=== PATIENT | female | born 1955 | race Caucasian/White ===

== ENCOUNTER → 2017-05-20 | Day surgery (SDC) | payer BC ==
[2017-05-18 08:54] LABS: BASOPHILS # (AUTO) 0.1 (0.0-0.1); BASOPHILS % 0.8 % (0.0-1.0); EOSINOPHILS # (AUTO) 0.1 (0.0-0.4); EOSINOPHILS % 1.5 % (0.0-6.0); HEMATOCRIT 49.7 % (34.2-44.1); HEMOGLOBIN 16.1 g/dL (12.0-16.0); LYMPHOCYTES # (AUTO) 2.5 (1.0-3.2); LYMPHOCYTES % 31.6 % (18.0-39.1); MEAN CORPUSCULAR HEMOGLOBIN 30.8 pg (28-32); MEAN CORPUSCULAR HGB CONC 32.4 g/dL (31-35); MONOCYTES # (AUTO) 0.8 (0.2-0.8); MONOCYTES % 9.6 % (4.4-11.3); NEUTROPHILS # (AUTO) 4.5 (2.1-6.9); PLATELET COUNT 178 x10e3/uL (140-360); RED BLOOD COUNT 5.23 x10e6/uL (3.6-5.1); RED CELL DISTRIBUTION WIDTH 12.6 % (11.7-14.4)
[2017-05-18 09:15] LABS: INR 0.87; PROTHROMBIN TIME 12.3 seconds (11.9-14.5)
[2017-05-18 09:16] LABS: PARTIAL THROMBOPLASTIN TIME 30.9 seconds (23.8-35.5)
[2017-05-18 09:23] LABS: ANION GAP 12.9 mmol/L (8-16); BLOOD UREA NITROGEN 15 mg/dL (7-26); BUN/CREATININE RATIO 19 (6-25); CALCIUM 9.1 mg/dL (8.4-10.2); CARBON DIOXIDE 30 mmol/L (22-29); CHLORIDE 102 mmol/L (98-107); CREATININE, SERUM 0.77 mg/dL (0.57-1.11); EST GLOMERULAR FILTRATION RATE > 60 ML/MIN (60-); GLUCOSE 122 mg/dL (74-118); POTASSIUM 3.9 mmol/L (3.5-5.1); SODIUM 141 mmol/L (136-145)
[~2017-05-20] MED LIST: BOTULINUM TOXIN TYPE A 100 UNIT VIAL IM ONE; BREO INH; CEFOXITIN 1GM/ DEXTROSE 50ML 50 ML IV ONE; DEXAMETHASONE SOD PHOS INJ 4 MG/ML VIAL ONE; FENTANYL CITRATE/PF 100MCG/2 ML INJ ONE; LEVOTHYROXINE50 MCG PO; LIDOCAINE HCL 2% LOCAL INJ 5 ML SDV VIAL INJ ONE; MIDAZOLAM HCL 2 MG/2 ML VIAL ONE; MONTELUKAST SOD10 MG PO; MULTI-VITAMIN1 EACH PO; NICODERM CQ1 EAC1 TD; ONDANSETRON HCL INJ 2 MG/ML VIAL ONE; OXYBUTYNIN CHLOR5 MG PO; PROPOFOL IV EMULSION 10 MG/ML 20 ML VIAL ONE; SEVOFLURANE INHAL SOLN 250 ML PEN BTL ONE; VENTOLIN HFA18 GM INH
--- NOTE | 2017-05-20 15:59 | Operative Report ---
DATE OF PROCEDURE: May 20, 2017 PREOPERATIVE DIAGNOSIS: Urinary urgency incontinence. POSTOPERATIVE DIAGNOSIS: Urinary urgency incontinence. OPERATION PERFORMED: Cystoscopy with injection of intravesical Botox 200 units. ANESTHESIA: General. INDICATIONS: This patient is a 61-year-old white female with a long history of urinary urgency incontinence. She has failed on anticholinergic agents and Myrbetriq. The patient did have a fairly good reaction in response to Botox 100 units; and, so, the plan now is to increase her dosage to Botox 200 units. For further details, please refer to the history and physical. The procedure was done in the following fashion. DESCRIPTION OF PROCEDURE: The patient was taken to the operating room and placed under general anesthesia, dressed and draped with Hibiclens in lithotomy position in the usual fashion. The 22-Wallisian Olympus cystoscope was inserted and the bladder emptied. I then did an evaluation of the bladder with the cystoscope, which revealed some mild cystitis cystica and some mild to moderate bladder trabeculation. No bladder tumors were identified. Prior to proceeding with a cystoscopy, I had diluted 200 units of Botox in 20 mL of bacteriostatic sterile saline. Using a Coloplast needle, I then made 20 injections in the patient's bladder, and these were spread out so as to avoid injection of the trigone area. Once the 20 injections were completed, the Coloplast needle and the cystoscope were withdrawn. Each injection was a 1 mL injection. The patient tolerated procedure well and left the operating room in good condition. She will have a return appointment to see me again in 2 weeks. She is being sent home on Macrobid 100 mg p.o. twice daily, number 20. She will resume her preoperative medications. Job#: [id number] EV
== END | disposition home or self-care (01) ==
LOC: OR 09:55
PROVIDERS: ATTEND Urology
DX: N39.41 Urge incontinence (principal); N30.80 Other cystitis without hematuria; N32.89 Other specified disorders of bladder; J44.9 Chronic obstructive pulmonary disease, unspecified; E66.9 Obesity, unspecified; I89.0 Lymphedema, not elsewhere classified; M81.0 Age-related osteoporosis without current pathological fracture; E03.2 Hypothyroidism due to medicaments and other exogenous substances; I83.893 Varicose veins of bilateral lower extremities with other complications; F41.9 Anxiety disorder, unspecified; F17.200 Nicotine dependence, unspecified, uncomplicated; Z01.810 Encounter for preprocedural cardiovascular examination; Z01.812 Encounter for preprocedural laboratory examination; Z68.39 Body mass index [BMI] 39.0-39.9, adult; Z84.1 Family history of disorders of kidney and ureter
CPT/HCPCS: 36415; 52287; 80048; 85025; 85610; 85730; 93005; J0587; J1100; J2001; J2250; J2405

== ENCOUNTER → 2017-11-18 | Day surgery (SDC) | payer BC ==
[2017-11-15 08:32] LABS: BASOPHILS # (AUTO) 0.1 (0.0-0.1); BASOPHILS % 0.6 % (0.0-1.0); EOSINOPHILS # (AUTO) 0.1 (0.0-0.4); EOSINOPHILS % 1.6 % (0.0-6.0); HEMOGLOBIN 17.5 g/dL (12.0-16.0); MEAN CORPUSCULAR HEMOGLOBIN 31.1 pg (28-32); MEAN CORPUSCULAR HGB CONC 32.4 g/dL (31-35); MEAN CORPUSCULAR VOLUME 95.9 fL (81-99); MONOCYTES # (AUTO) 0.8 (0.2-0.8); MONOCYTES % 10.1 % (4.4-11.3); NEUTROPHILS % 49.5 % (38.7-80.0); PLATELET COUNT 169 x10e3/uL (140-360); RED BLOOD COUNT 5.63 x10e6/uL (3.6-5.1); RED CELL DISTRIBUTION WIDTH 12.9 % (11.7-14.4)
[2017-11-15 08:42] LABS: INR 1.02; PROTHROMBIN TIME 12.6 seconds (11.9-14.5)
[2017-11-15 08:43] LABS: PARTIAL THROMBOPLASTIN TIME 30.4 seconds (23.8-35.5)
[2017-11-15 08:51] LABS: ALANINE AMINOTRANSFERASE 30 IU/L (0-55); ALBUMIN 4.2 g/dL (3.5-5.0); ALBUMIN/GLOBULIN RATIO 1.2 (0.8-2.0); ALKALINE PHOSPHATASE 94 IU/L (40-150); ANION GAP 16.3 mmol/L (8-16); BLOOD UREA NITROGEN 16 mg/dL (7-26); BUN/CREATININE RATIO 20 (6-25); CALCIUM 9.7 mg/dL (8.4-10.2); CARBON DIOXIDE 28 mmol/L (22-29); CHLORIDE 101 mmol/L (98-107); EST GLOMERULAR FILTRATION RATE > 60 ML/MIN (60-); GLUCOSE 116 mg/dL (74-118); POTASSIUM 4.3 mmol/L (3.5-5.1); SODIUM 141 mmol/L (136-145)
--- NOTE | 2017-11-15 08:54 | Diagnostic Imaging Report ---
PROCEDURE: X-RAY CHEST, TWO VIEWS COMPARISON: Patients [facility], DX, CHEST 2 VIEWS, 02/09/2017, 14:01. INDICATIONS: PRE OPERATIVE CHEST X-RAY FOR BLADDER BOTOX FINDINGS: LUNGS: No consolidations or edema. There is a right lower lobe calcified granuloma. PLEURA: No effusions or pneumothorax. HEART \T\ MEDIASTINUM: The heart is within normal size-limits. BONES \T\ SOFT TISSUES: No acute findings. CONCLUSION: No acute thoracic abnormality. Edd Diaz D.O. Dictated by: Edd Diaz D.O. on 11/15/2017 at 8:56 Electronically approved by: Edd Diaz D.O. on 11/15/2017 at 8:56
[~2017-11-18] MED LIST changes: -CEFOXITIN 1GM/ DEXTROSE 50ML 50 ML IV ONE; +CEFOXITIN SOD 1 GM VIAL ONE; +MACROBID 100 M100 MG PO
--- NOTE | 2017-11-18 12:03 | Operative Report ---
DATE OF PROCEDURE: November 18, 2017 PREOPERATIVE DIAGNOSIS: Urinary urgency incontinence. POSTOPERATIVE DIAGNOSIS: Urinary urgency incontinence. OPERATION PERFORMED: Cystoscopy with injection of intravesical Botox 200 units. ANESTHESIA: General. INDICATIONS: This patient is a 62-year-old white female who has had problems with urinary urgency incontinence for several years. She failed on standard anticholinergic medications and on Myrbetriq, but she has responded well to intravesical Botox. Her main problem with this is that she has had some urinary tract infections, which I had to clear up prior to starting her injection today. For further details, please refer to the history and physical. The procedure was done in the following fashion: DESCRIPTION OF PROCEDURE: The patient was taken to the operating room, placed under general anesthesia, dressed and draped with Hibiclens in lithotomy position in the usual fashion. I diluted 200 units of Botox into 30 mL of bacteriostatic saline. Cystoscopy was performed using the 22.5-Cam[place]onian Olympus cystoscope with video camera attachment and the 30-degree oblique lens. There was some squamous metaplasia of the trigone present. Clear efflux was seen from both ureteral orifices. The bladder mucosa did not appear inflamed. Using the Coloplast needle, I made 30 injections of Botox. Each injection was 1 mL. These injections were taken in such a way as to avoid the trigone and scattered them across the lateral wall of the bladder and the floor of the bladder. Once the 30 injections were accomplished, the bladder was emptied and the cystoscope withdrawn. The patient tolerated procedure well and left the operating room in good condition. Blood loss was minimal. My plan at this time is to send the patient home on Macrobid 100 mg p.o. twice daily. She will have a return appointment to see me again in 2 weeks. Job#: [id number]
== END | disposition home or self-care (01) ==
LOC: OR 11:45
PROVIDERS: ATTEND Urology
DX: N39.41 Urge incontinence (principal); N30.20 Other chronic cystitis without hematuria; J44.9 Chronic obstructive pulmonary disease, unspecified; E03.9 Hypothyroidism, unspecified; D35.00 Benign neoplasm of unspecified adrenal gland; N80.2 Endometriosis of fallopian tube; N80.1 Endometriosis of ovary; M81.0 Age-related osteoporosis without current pathological fracture; E66.9 Obesity, unspecified; I83.893 Varicose veins of bilateral lower extremities with other complications; F41.9 Anxiety disorder, unspecified; F17.200 Nicotine dependence, unspecified, uncomplicated; Z01.810 Encounter for preprocedural cardiovascular examination; Z01.812 Encounter for preprocedural laboratory examination; Z01.818 Encounter for other preprocedural examination; Z68.30 Body mass index [BMI] 30.0-30.9, adult; Z84.1 Family history of disorders of kidney and ureter
CPT/HCPCS: 36415; 52287; 71046; 80053; 85025; 85610; 85730; 93005; J0587; J0694; J1100; J2001; J2250; J2405

== ENCOUNTER → 2018-03-17 | Day surgery (SDC) | payer BC ==
--- NOTE | 2018-03-15 11:32 | Diagnostic Imaging Report ---
EXAM: CHEST 2 VIEWS, PA and lateral DATE: 03/15/2018 10:27 AM Time stamp on exam: 10:58 AM INDICATION: Preoperative COMPARISON: None FINDINGS: LINES/TUBES: None LUNGS: The lungs are hyperexpanded. Right basilar opacity likely secondary to atelectasis. No nodules are consolidation. PLEURA: No effusions or pneumothorax. HEART AND MEDIASTINUM: Normal size and contour. BONES AND SOFT TISSUES: No acute findings. IMPRESSION: No acute thoracic abnormality. Signed by: Dr. Edd Diaz DO on 03/15/2018 11:28 AM
[2018-03-15 11:36] LABS: BASOPHILS # (AUTO) 0.1 (0.0-0.1); BASOPHILS % 0.6 % (0.0-1.0); EOSINOPHILS # (AUTO) 0.1 (0.0-0.4); EOSINOPHILS % 1.7 % (0.0-6.0); HEMATOCRIT 50.7 % (34.2-44.1); HEMOGLOBIN 16.6 g/dL (12.0-16.0); LYMPHOCYTES # (AUTO) 2.5 (1.0-3.2); LYMPHOCYTES % 30.1 % (18.0-39.1); MEAN CORPUSCULAR HEMOGLOBIN 31.5 pg (28-32); MEAN CORPUSCULAR HGB CONC 32.7 g/dL (31-35); MEAN CORPUSCULAR VOLUME 96.2 fL (81-99); MONOCYTES # (AUTO) 0.7 (0.2-0.8); MONOCYTES % 9.1 % (4.4-11.3); NEUTROPHILS # (AUTO) 4.8 (2.1-6.9); NEUTROPHILS % 58.3 % (38.7-80.0); PLATELET COUNT 186 x10e3/uL (140-360); RED BLOOD COUNT 5.27 x10e6/uL (3.6-5.1); RED CELL DISTRIBUTION WIDTH 12.5 % (11.7-14.4)
[2018-03-15 11:48] LABS: INR 0.86; PROTHROMBIN TIME 12.5 seconds (11.9-14.5)
[2018-03-15 11:49] LABS: PARTIAL THROMBOPLASTIN TIME 29.8 seconds (23.8-35.5)
[2018-03-15 11:57] LABS: ALANINE AMINOTRANSFERASE 44 IU/L (0-55); ALBUMIN 3.9 g/dL (3.5-5.0); ALBUMIN/GLOBULIN RATIO 1.2 (0.8-2.0); ALKALINE PHOSPHATASE 84 IU/L (40-150); ANION GAP 15.7 mmol/L (8-16); BLOOD UREA NITROGEN 32 mg/dL (7-26); BUN/CREATININE RATIO 41 (6-25); CALCIUM 9.5 mg/dL (8.4-10.2); CARBON DIOXIDE 28 mmol/L (22-29); CHLORIDE 99 mmol/L (98-107); CREATININE, SERUM 0.79 mg/dL (0.57-1.11); EST GLOMERULAR FILTRATION RATE > 60 ML/MIN (60-); GLUCOSE 101 mg/dL (74-118); POTASSIUM 4.7 mmol/L (3.5-5.1); SODIUM 138 mmol/L (136-145)
[~2018-03-17] MED LIST changes: +[UNRECOGNIZED DRUG - OTHER]; +[UNRECOGNIZED DRUG - OTHER]
[2018-03-17 12:35] VITALS: BP 144/76
--- NOTE | 2018-03-17 13:32 | Operative Report ---
DATE OF PROCEDURE: March 17, 2018 PREOPERATIVE DIAGNOSIS: Urinary urgency incontinence. POSTOPERATIVE DIAGNOSIS: Urinary urgency incontinence. OPERATION PERFORMED: Cystoscopy with injection of intravesical Botox 200 units. ANESTHESIA: General. INDICATIONS: This patient is a 62-year-old white female who has a long history of urinary urgency incontinence. She has failed on anticholinergic medications, and Myrbetriq was too expansive. The patient has responded well to Botox at 200 units intravesically. For further details, please refer to the history and physical. The procedure was done in the following fashion. DESCRIPTION OF PROCEDURE: The patient was taken to the operating room, placed under general anesthesia, and dressed and draped with Hibiclens in lithotomy position in the usual fashion. Cystourethroscopy was performed with a 25-Kosovan Olympus rigid cystoscope and the 30-degree oblique lens. The ureteral orifices were very close to the bladder neck, and the trigone had severe squamous metaplasia. The bladder looked okay otherwise. I had mixed up 200 units of Botox into 30 mL of sterile bacteriostatic normal saline. After this was prepared, I then used a Coloplast needle and I made 30 injections in the bladder to scatter it out evenly from the right lateral wall of the bladder to the left lateral wall of the bladder and to the middle of the bladder, taking care to avoid injection of the trigone or the ureteral orifices. After 30 injections, the bladder was emptied and the cystoscope withdrawn. The patient tolerated the procedure well and left the operating room in good condition. My plan at this time is to send the patient home on Macrobid 100 mg p.o. twice daily, number 20. She will have a return appointment to see me again in 2 weeks. Job#: [id number] EV
== END | disposition home or self-care (01) ==
LOC: OR 09:00
PROVIDERS: ATTEND Urology
DX: N39.41 Urge incontinence (principal); D35.00 Benign neoplasm of unspecified adrenal gland; N30.20 Other chronic cystitis without hematuria; N80.2 Endometriosis of fallopian tube; N80.1 Endometriosis of ovary; M81.0 Age-related osteoporosis without current pathological fracture; L03.116 Cellulitis of left lower limb; E03.2 Hypothyroidism due to medicaments and other exogenous substances; J45.20 Mild intermittent asthma, uncomplicated; I83.893 Varicose veins of bilateral lower extremities with other complications; E66.9 Obesity, unspecified; F17.210 Nicotine dependence, cigarettes, uncomplicated; Z01.810 Encounter for preprocedural cardiovascular examination; Z01.812 Encounter for preprocedural laboratory examination; Z01.818 Encounter for other preprocedural examination; Z68.30 Body mass index [BMI] 30.0-30.9, adult
CPT/HCPCS: 36415; 52287; 71046; 80053; 84443; 85025; 85610; 85730; 93005; J0587; J0694; J1100; J2001; J2250; J2405

== ENCOUNTER → 2018-08-25 | Day surgery (SDC) | payer BC, MEDICARE ==
[2018-08-23 10:33] LABS: BASOPHILS # (AUTO) 0.1 (0.0-0.1); BASOPHILS % 0.8 % (0.0-1.0); EOSINOPHILS # (AUTO) 0.1 (0.0-0.4); EOSINOPHILS % 1.7 % (0.0-6.0); HEMATOCRIT 50.5 % (34.2-44.1); HEMOGLOBIN 16.5 g/dL (12.0-16.0); LYMPHOCYTES # (AUTO) 2.1 (1.0-3.2); LYMPHOCYTES % 26.5 % (18.0-39.1); MEAN CORPUSCULAR HEMOGLOBIN 30.9 pg (28-32); MEAN CORPUSCULAR HGB CONC 32.7 g/dL (31-35); MEAN CORPUSCULAR VOLUME 94.6 fL (81-99); MONOCYTES # (AUTO) 0.8 (0.2-0.8); MONOCYTES % 10.1 % (4.4-11.3); NEUTROPHILS # (AUTO) 4.7 (2.1-6.9); NEUTROPHILS % 60.5 % (38.7-80.0); PLATELET COUNT 164 x10e3/uL (140-360); RED BLOOD COUNT 5.34 x10e6/uL (3.6-5.1); RED CELL DISTRIBUTION WIDTH 12.4 % (11.7-14.4)
[2018-08-23 10:51] LABS: INR 0.9; PROTHROMBIN TIME 12.6 seconds (11.9-14.5)
[2018-08-23 10:52] LABS: PARTIAL THROMBOPLASTIN TIME 32.5 seconds (23.8-35.5)
[2018-08-23 10:58] LABS: ALANINE AMINOTRANSFERASE 26 IU/L (0-55); ALBUMIN 3.7 g/dL (3.5-5.0); ALBUMIN/GLOBULIN RATIO 1.1 (0.8-2.0); ALKALINE PHOSPHATASE 81 IU/L (40-150); BLOOD UREA NITROGEN 14 mg/dL (7-26); BUN/CREATININE RATIO 17 (6-25); CALCIUM 9.3 mg/dL (8.4-10.2); CARBON DIOXIDE 27 mmol/L (22-29); CHLORIDE 100 mmol/L (98-107); CREATININE, SERUM 0.81 mg/dL (0.57-1.11); EST GLOMERULAR FILTRATION RATE > 60 ML/MIN (60-); GLUCOSE 105 mg/dL (74-118); SODIUM 135 mmol/L (136-145)
[~2018-08-25] MED LIST changes: +CEFOXITIN 1GM/ NS 50ML ML IV ONE; -CEFOXITIN SOD 1 GM VIAL ONE; +DIFLUCAN150 MG PO; +GLYCOPYRROLATE INJ 1MG/ 5 ML SYR ONE; +KETOROLAC TROME10 MG PO; +NEOSTIGMINE 5 MG/5ML SYR ONE; +OASIS TEARS OU; -ONDANSETRON HCL INJ 2 MG/ML VIAL ONE; +ONDANSETRON HCL INJ 2MG/ML 2ML 2 MG/ML VIAL ONE; +ROCURONIUM BROMIDE 10 MG/ML 5ML VIAL ONE; +SUCCINYLCHOLINE 200 MG/10 ML SYR ONE
[2018-08-25 11:20] VITALS: BP 139/69
--- NOTE | 2018-08-25 17:53 | Operative Report ---
DATE OF PROCEDURE: SURGEON: Bobby Cruz MD PREOPERATIVE DIAGNOSIS: Urinary urgency incontinence. POSTOPERATIVE DIAGNOSIS: Urinary urgency incontinence. OPERATION PERFORMED: Cystoscopy with injection of intravesical Botox 300 units. ANESTHESIA: General. INDICATIONS: This patient is a 63-year-old white female with a long history of urinary urgency incontinence, who failed on anticholinergic medications. She was also given a trial of Myrbetriq in combination with anticholinergic agents as well. The patient had a partial response to Botox 100 units. She had a slightly better response to Botox 200 units, but it started wearing off after about 2 months. She is now scheduled for injection of intravesical Botox 300 units. For further details, please refer to the history and physical. The procedure was done in following fashion. DESCRIPTION OF PROCEDURE: The patient was taken to the operating room, placed under general anesthesia, dressed and draped with Hibiclens in lithotomy position in the usual fashion. Cystourethroscopy was performed using the 22-Qatari Olympus cystoscope with the 30 degree oblique lens and video camera attachment. Clear efflux was seen from both ureteral orifices. No bladder tumors or bladder stones were identified. The bladder was mildly trabeculated. A 300 units of Botox were diluted into 30 mL of bacteriostatic sterile saline. These were then injected into the bladder using a Coloplast needle for a total of 30 injections to scatter them nicely across the bladder avoiding injury to the trigone. Once this was accomplished, the bladder was emptied and cystoscope withdrawn. The patient tolerated the procedure well and left the operating room in good condition. It should be noted that I had originally requested Mefoxin preoperatively, but Mefoxin is on backorder, and the patient got Cipro 400 mg IV preoperatively. She also states that she gets yeast infections after having not been on antibiotics, so I am sending her home on diflucan 150 mg one p.o. daily for 3 days, Macrobid 1 or 2 mg p.o. twice daily for 7 days and on Toradol 10 mg one p.o. q.6h. p.r.n. pain #28. She will have a return appointment to see me again in 2 weeks. Bobby Cruz MD ROBERTO/MODL /[id number]
== END | disposition home or self-care (01) ==
LOC: OR 07:22
PROVIDERS: ATTEND Urology
DX: N39.41 Urge incontinence (principal); N32.89 Other specified disorders of bladder; E03.9 Hypothyroidism, unspecified; J44.9 Chronic obstructive pulmonary disease, unspecified; Z01.810 Encounter for preprocedural cardiovascular examination; Z01.812 Encounter for preprocedural laboratory examination; Z87.01 Personal history of pneumonia (recurrent); Z87.891 Personal history of nicotine dependence
CPT/HCPCS: 36415; 52287; 80053; 85025; 85610; 85730; 93005; J0587; J1100; J2001; J2250; J2405; J2704; J3490

== ENCOUNTER → 2019-01-12 | Day surgery (SDC) | payer MEDICARE ==
[2018-12-12 13:13] LABS: BASOPHILS % 0.5 % (0.0-1.0); EOSINOPHILS # (AUTO) 0.1 (0.0-0.4); EOSINOPHILS % 1.8 % (0.0-6.0); HEMATOCRIT 53.4 % (34.2-44.1); HEMOGLOBIN 17.1 g/dL (12.0-16.0); LYMPHOCYTES # (AUTO) 2.3 (1.0-3.2); LYMPHOCYTES % 28.4 % (18.0-39.1); MEAN CORPUSCULAR HEMOGLOBIN 30.9 pg (28-32); MEAN CORPUSCULAR VOLUME 96.6 fL (81-99); MONOCYTES # (AUTO) 0.8 (0.2-0.8); MONOCYTES % 10.5 % (4.4-11.3); NEUTROPHILS # (AUTO) 4.7 (2.1-6.9); NEUTROPHILS % 58.4 % (38.7-80.0); PLATELET COUNT 155 x10e3/uL (140-360); RED BLOOD COUNT 5.53 x10e6/uL (3.6-5.1)
[2018-12-12 13:22] LABS: INR 0.88; PROTHROMBIN TIME 12.4 seconds (11.9-14.5)
[2018-12-12 13:23] LABS: PARTIAL THROMBOPLASTIN TIME 31.5 seconds (23.8-35.5)
[2018-12-12 13:29] LABS: ALANINE AMINOTRANSFERASE 24 IU/L (0-55); ALBUMIN 3.7 g/dL (3.5-5.0); ALBUMIN/GLOBULIN RATIO 1.1 (0.8-2.0); ALKALINE PHOSPHATASE 80 IU/L (40-150); ANION GAP 11.7 mmol/L (8-16); BLOOD UREA NITROGEN 13 mg/dL (7-26); BUN/CREATININE RATIO 19 (6-25); CARBON DIOXIDE 31 mmol/L (22-29); CHLORIDE 100 mmol/L (98-107); CREATININE, SERUM 0.69 mg/dL (0.57-1.11); EST GLOMERULAR FILTRATION RATE > 60 ML/MIN (60-); GLUCOSE 109 mg/dL (74-118); POTASSIUM 4.7 mmol/L (3.5-5.1); SODIUM 138 mmol/L (136-145)
--- NOTE | 2018-12-12 13:40 | Diagnostic Imaging Report ---
EXAMINATION: CHEST 2 VIEWS INDICATION: Preoperative COMPARISON: Chest radiograph of 03/15/2018 FINDINGS: TUBES and LINES: None. LUNGS: The lung volumes are normal. No focal consolidation or pulmonary edema. PLEURA: No pleural effusion or pneumothorax. HEART AND MEDIASTINUM: The cardiomediastinal silhouette is normal in size and contour. BONES AND SOFT TISSUES: No acute fracture or dislocation. UPPER ABDOMEN: No free air under the diaphragm. IMPRESSION: No focal pneumonia or pulmonary edema. Signed by: Chad Llamas MD on 12/12/2018 1:37 PM
[~2019-01-12] MED LIST changes: +CEFOXITIN 1GM/ D5W 50ML 50 ML IV ONE; -CEFOXITIN 1GM/ NS 50ML ML IV ONE; -GLYCOPYRROLATE INJ 1MG/ 5 ML SYR ONE; -MIDAZOLAM HCL 2 MG/2 ML VIAL ONE; -NEOSTIGMINE 5 MG/5ML SYR ONE; -ROCURONIUM BROMIDE 10 MG/ML 5ML VIAL ONE; -SUCCINYLCHOLINE 200 MG/10 ML SYR ONE; -[UNRECOGNIZED DRUG - OTHER]; +[UNRECOGNIZED DRUG - OTHER] INH
[2019-01-12 12:10] VITALS: BP 120/64
--- NOTE | 2019-01-12 17:53 | Operative Report ---
DATE OF PROCEDURE: 01/12/2019 SURGEON: Bobby Cruz MD PREOPERATIVE DIAGNOSIS: Urinary urgency incontinence. POSTOPERATIVE DIAGNOSIS: Urinary urgency incontinence. OPERATIONS PERFORMED: Cystoscopy with injection of intravesical Botox 300 units. ANESTHESIA: General. INDICATIONS: This patient is a 63-year-old white female with a long history of urinary urgency incontinence. She failed to respond to anticholinergic agents and also failed to respond to Myrbetriq. However, she has had a good response to intravesical Botox 300 units and she is now due for another injection. For further details, please refer to the history and physical. The procedure was done in following fashion. PROCEDURE IN DETAIL: The patient was taken to the operating room, placed under general anesthesia and dressed and draped with Hibiclens in lithotomy position in the usual fashion. Cystourethroscopy was performed with 22-[place] Citizen Olympus cystoscope with the 30 degree oblique lens and video camera attachment. Clear efflux was seen from both ureteral orifices. There was squamous metaplasia of the trigone. The bladder was moderately trabeculated. Prior to placing the patient under anesthesia, I first mixed 300 units of Botox into 30 mL of bacteriostatic state of preservative-free sterile saline. Using a Coloplast needle, I made 30 injections scattered about through the bladder, first on the right side than on the left side, then in the center taking care to avoid injury to the trigone. Once these 30 of 1 mL injections were made, the Coloplast needle was removed. The bladder emptied and cystoscope withdrawn. The patient tolerated the procedure well and left the operating room in good condition. My plan at this time is to send the patient home on Macrobid 100 mg p.o. twice daily #20. She will have return appointment to see me again in two weeks. Bobby Cruz MD ROBERTO/MODL /[id number]
== END | disposition home or self-care (01) ==
LOC: OR 08:59
PROVIDERS: ATTEND Urology
DX: N39.41 Urge incontinence (principal); N32.89 Other specified disorders of bladder; N30.20 Other chronic cystitis without hematuria; B37.3 Candidiasis of vulva and vagina; D35.00 Benign neoplasm of unspecified adrenal gland; J44.9 Chronic obstructive pulmonary disease, unspecified; E03.9 Hypothyroidism, unspecified; H25.23 Age-related cataract, morgagnian type, bilateral; M81.0 Age-related osteoporosis without current pathological fracture; E66.9 Obesity, unspecified; I83.893 Varicose veins of bilateral lower extremities with other complications; R45.4 Irritability and anger; F41.9 Anxiety disorder, unspecified; Z01.810 Encounter for preprocedural cardiovascular examination; Z01.812 Encounter for preprocedural laboratory examination; Z01.818 Encounter for other preprocedural examination; Z87.891 Personal history of nicotine dependence; Z87.01 Personal history of pneumonia (recurrent)
CPT/HCPCS: 36415; 52287; 71046; 80053; 85025; 85610; 85730; 93005; J0587; J1100; J2001; J2405; J2704; J3010

== ENCOUNTER → 2019-04-13 | Day surgery (SDC) | payer MEDICARE ==
[2019-04-09 09:03] LABS: BASOPHILS # (AUTO) 0.1 (0.0-0.1); BASOPHILS % 0.8 % (0.0-1.0); EOSINOPHILS # (AUTO) 0.1 (0.0-0.4); EOSINOPHILS % 1.6 % (0.0-6.0); HEMATOCRIT 51.1 % (34.2-44.1); HEMOGLOBIN 16.7 g/dL (12.0-16.0); LYMPHOCYTES # (AUTO) 2.5 (1.0-3.2); LYMPHOCYTES % 28.5 % (18.0-39.1); MEAN CORPUSCULAR HEMOGLOBIN 30.8 pg (28-32); MEAN CORPUSCULAR HGB CONC 32.7 g/dL (31-35); MEAN CORPUSCULAR VOLUME 94.3 fL (81-99); MONOCYTES # (AUTO) 0.8 (0.2-0.8); MONOCYTES % 9.4 % (4.4-11.3); NEUTROPHILS # (AUTO) 5.1 (2.1-6.9); NEUTROPHILS % 59.2 % (38.7-80.0); PLATELET COUNT 168 x10e3/uL (140-360); RED BLOOD COUNT 5.42 x10e6/uL (3.6-5.1); RED CELL DISTRIBUTION WIDTH 13.3 % (11.7-14.4)
[2019-04-09 09:19] LABS: INR 0.88; PROTHROMBIN TIME 12.4 seconds (11.9-14.5)
[2019-04-09 09:21] LABS: ALANINE AMINOTRANSFERASE 25 IU/L (0-55); ALBUMIN 3.7 g/dL (3.5-5.0); ALBUMIN/GLOBULIN RATIO 1.1 (0.8-2.0); ALKALINE PHOSPHATASE 87 IU/L (40-150); ANION GAP 12.2 mmol/L (8-16); BLOOD UREA NITROGEN 12 mg/dL (7-26); BUN/CREATININE RATIO 19 (6-25); CALCIUM 9.3 mg/dL (8.4-10.2); CARBON DIOXIDE 29 mmol/L (22-29); CHLORIDE 98 mmol/L (98-107); CREATININE, SERUM 0.62 mg/dL (0.57-1.11); EST GLOMERULAR FILTRATION RATE > 60 ML/MIN (60-); GLUCOSE 111 mg/dL (74-118); POTASSIUM 4.2 mmol/L (3.5-5.1); SODIUM 135 mmol/L (136-145)
--- NOTE | 2019-04-09 09:44 | Diagnostic Imaging Report ---
EXAMINATION: CHEST 2 VIEWS INDICATION: Pre-operative COMPARISON: Chest radiograph of 12/12/2018 FINDINGS: LINES/TUBES:None LUNGS:The lungs are mildly hyperinflated. No focal consolidation or pulmonary edema. PLEURA:No pleural effusion or pneumothorax. MEDIASTINUM:The cardiomediastinal silhouette appears normal in size and shape. BONES/SOFT TISSUES:No acute osseous injury. ABDOMEN:No free air under the diaphragm. IMPRESSION: Mildly hyperinflated lungs. No focal pneumonia or pulmonary edema. Signed by: Chad Llamas MD on 04/09/2019 9:40 AM
[~2019-04-13] MED LIST changes: +ALBUTEROL SULF 0.083% NEB SOLN 3 ML NEB ONE; -DEXAMETHASONE SOD PHOS INJ 4 MG/ML VIAL ONE
[2019-04-13 14:30] VITALS: BP 118/74
--- NOTE | 2019-04-13 20:33 | Operative Report ---
DATE OF PROCEDURE: 04/13/2019 SURGEON: Bobby Cruz MD LOCATION: [facility]. PREOPERATIVE DIAGNOSIS: Urinary urgency/incontinence. POSTOPERATIVE DIAGNOSIS: Urinary urgency/incontinence. OPERATION PERFORMED: Cystoscopy with injection of intravesical Botox 300 units. ANESTHESIA: General. INDICATIONS: This patient is a 63-year-old white female with a long history of urinary urgency/incontinence. She failed on trials of anticholinergics and on Myrbetriq. The patient, however, has responded well to Botox 300 units. She now returns for a followup intravesical Botox injection. For further details, please refer to the history and physical. The procedure was done in following fashion. DESCRIPTION OF PROCEDURE: The patient was taken to the operating room, placed under general anesthesia, dressed and draped with Hibiclens in lithotomy position in usual fashion. Cystourethroscopy was performed with 25-Croatian Olympus cystoscope with a 30-degree oblique lens. There was a prominent amount of squamous metaplasia of the trigone present, but both ureteral orifices were identified. The bladder had moderate trabeculation. Prior to starting the cystoscopy, I diluted 300 units of Botox into 30 mL of bacteriostatic sterile saline. Using a Coloplast needle, I made 30 injections into the bladder taking care to avoid injury to the trigone. Each injection was 1 mL. Once the 30 injections were completed, the Coloplast needle and the cystoscope withdrawn. The bladder was emptied and cystoscope withdrawn. The patient tolerated the procedure well, left the operating room in good condition. She is going to go home on Macrobid 100 mg p.o. twice daily for 1 week and will have return appointment to see me again in 2 weeks. Bobby Cruz MD ROBERTO/MODL /[id number]
== END | disposition home or self-care (01) ==
LOC: OR 09:13
PROVIDERS: ATTEND Urology
DX: N39.41 Urge incontinence (principal); Z01.810 Encounter for preprocedural cardiovascular examination; Z01.812 Encounter for preprocedural laboratory examination; Z01.811 Encounter for preprocedural respiratory examination; D35.00 Benign neoplasm of unspecified adrenal gland; N30.20 Other chronic cystitis without hematuria; H25.23 Age-related cataract, morgagnian type, bilateral; M81.0 Age-related osteoporosis without current pathological fracture; E03.9 Hypothyroidism, unspecified; J45.20 Mild intermittent asthma, uncomplicated; F17.200 Nicotine dependence, unspecified, uncomplicated; E66.9 Obesity, unspecified; J45.909 Unspecified asthma, uncomplicated; Z84.89 Family history of other specified conditions; Z80.1 Family history of malignant neoplasm of trachea, bronchus and lung; Z84.1 Family history of disorders of kidney and ureter
CPT/HCPCS: 36415; 52287; 71046; 80053; 85025; 85610; 85730; 93005; J0587; J2001; J2405; J2704; J3010